=== PATIENT | female | born 1930 | race Caucasian/White ===

== ENCOUNTER → 2017-02-09 | Outpatient (CLI) | payer OTHER ==
[~2017-02-09] MED LIST: ALBUTEROL17 GM INH; ALL DAY ALLERGY10 M3 PO; AMLODIPINE BESYL5 MG PO; AZITHROMYCIN250 MG PO; CYANOCOBAL1000 MCG/M INJ; DULERA 200 MCG/13 GM INH; FERROUS GLUCON PO; HYDROCHLOROTH12.5 M1 PO; LEVO-T88 MCG PO; LIPITOR20 MG PO; OMEPRAZOLE40 M1 PO; PREDNISONE10 MG PO; XOPENEX HFA15 GM INH; ZESTRIL5 MG PO; ZYLOPRIM100 MG PO
--- NOTE | ~2017-02-09 | CR63 ---
[facility] A Service of [facility] & [facility] RADIOLOGY TEXT RESULTS PATIENT: MARIELA DO LOCATION: [facility] : [birth year] UNIT #: [id number] AGE: [address]: MELLISSA SOTO APRN SEX: F ORDER DR: [id number] [facility] [address] [place], [place] [address] [id number] O MR#: [id number] Acc #: [id number] NAME: MARIELA DO : 1930 SEX: F STUDY DATE/TIME: 02/09/2017 15:21 UNIT: [facility] ROOM: STUDY DESCRIPTION: CR Chest 2 View Attending Physician: Monica Soto M.D. Referring Physician: Monica Soto M.D. Ordering Physician: Monica Soto M.D. Primary Care Physician: Monica Soto M.D. MEDICAL IMAGING REPORT This report is preliminary unless electronic signature is present EXAM PA and lateral chest, 02/09/2017 COMPARISON None HISTORY Shortness of breath for months. FINDINGS PA and lateral views obtained. The heart size is normal. Lungs are hyperinflated but clear. There is atherosclerotic disease in the aorta. CONCLUSION Hyperinflation consistent with chronic emphysematous lung disease. No acute process identified. Dictated by... Lukasz Edwards M.D. THIS IS AN ELECTRONICALLY VERIFIED REPORT Lukasz Edwards M.D. at 02/10/2017 7:26 AM [place] TD: 02/09/2017 15:40 JOB #: [id number] MEDICAL IMAGING REPORT Page 1 of 1 COPY
== END | disposition home or self-care (01) ==
LOC: CRAD 14:35
DX: R06.02 Shortness of breath (principal); R91.8 Other nonspecific abnormal finding of lung field
CPT/HCPCS: 71020

== ENCOUNTER 2017-02-10 18:56 | Inpatient (IN) | payer OTHER ==
--- NOTE | ~2017-02-10 | US84 ---
[id number] [facility] [address] [place], [place] [address] [id number] I MR#: [id number] Acc #: [id number] NAME: MARIELA BESS : 1930 SEX: F STUDY DATE/TIME: 02/11/2017 8:56 UNIT: [id number] PCU ROOM: 302 STUDY DESCRIPTION: US LE Veins Complete Roshan Stdy Attending Physician: Lenore Alaniz M.D. Ordering Physician: Anuja Gonzales M.D. Primary Care Physician: Monica Ledezma M.D. MEDICAL IMAGING REPORT This report is preliminary unless electronic signature is present EXAM Bilateral lower extremity Doppler venous ultrasound, 02/11/2017. HISTORY Bilateral lower extremity pain, greatest in the knees and ankles for 2 years. COMPARISON None. TECHNIQUE Venous ultrasound examination of both lower extremities was performed using grayscale, spectral Doppler and color flow Doppler imaging. FINDINGS The examination is negative. There is no evidence of deep venous thrombus from the groin to the lower calf bilaterally. Visualized greater saphenous veins are also patent. IMPRESSION Negative examination. No evidence of lower extremity deep venous thrombosis. Dictated by... Donya Zapien M.D. THIS IS AN ELECTRONICALLY VERIFIED REPORT Donya Zapien M.D. at 02/14/2017 8:31 AM Tu TD: 02/11/2017 11:35 JOB #: [id number] MEDICAL IMAGING REPORT Page 1 of 1 COPY
--- NOTE | ~2017-02-10 | CR72 ---
[facility]. [facility] A Service of [facility] & [facility] RADIOLOGY TEXT RESULTS PATIENT: MARIELA BESS LOCATION: [facility] : [birth year] UNIT #: [id number] AGE: [address]: Anuja Gonzales MD SEX: F ORDER DR: [id number] [facility] [address] [place], [place] [address] [id number] E MR#: [id number] Acc #: [id number] NAME: MARIELA BESS. : 1930 SEX: F STUDY DATE/TIME: 02/10/2017 19:54 UNIT: [facility] ROOM: STUDY DESCRIPTION: CR Chest Single View Portable Attending Physician: Kulwant Doyle M.D. Ordering Physician: Kulwant Doyle M.D. Primary Care Physician: Monica Ledezma M.D. MEDICAL IMAGING REPORT This report is preliminary unless electronic signature is present EXAM Portable chest. HISTORY Chest pain, cough, congestion, onset today. COMPARISON 02/09/2017 FINDINGS Portable view of the chest demonstrates pulmonary hyperinflation, hyperlucency compatible with underlying emphysema and mild fibrosis. No acute airspace disease or consolidation. No effusions. Heart, mediastinum unremarkable. No pneumothorax. Dictated by... Yoly Haas M.D. THIS IS AN ELECTRONICALLY VERIFIED REPORT Yoly Haas M.D. at 02/10/2017 10:34 PM Juan TD: 02/10/2017 21:28 JOB #: [id number] MEDICAL IMAGING REPORT Page 1 of 1 COPY
--- NOTE | ~2017-02-10 | EKG ---
PATIENT: CHARLES BLISSMARIELA UNIT #: [id number] Ventricular Rate: 127 BPM Atrial Rate: 127 BPM P-R Interval: 144 ms QRS Duration: 74 ms Q-T Interval: 304 ms QTC Calculation(Bezet): 441 ms P [place]: 72 degrees Calculated R [place]: 52 degrees Calculated T [place]: 69 degrees Diagnosis Line: Sinus tachycardia with Fusion complexes Diagnosis Line: Possible Left atrial enlargement Diagnosis Line: Borderline ECG Diagnosis Line: Diagnosis Line: Confirmed by KAIT NEVAREZ MD ([id number]) on Diagnosis Line: 02/11/2017 8:54:36 AM INTERPRETING MD: GERI HARMON
--- NOTE | ~2017-02-10 | DS ---
Unit #: [id number] #: [id number] Patient: MARIELA BESS [id number] [address] [place], [place] [address] [id number] I MR#: [id number] NAME: MARIELA BESS. ROOM: [facility] Age: 86 Sex: F Admission Date: 02/10/2017 : 1930 Discharge Date: 02/13/2017 Attending Physician: Lenore Alaniz M.D. Primary Care Physician: Monica Ledezma M.D. DISCHARGE SUMMARY PRINCIPAL DIAGNOSES 1. Acute asthma exacerbation. 2. Acute bronchitis. 3. Acute kidney injury, prerenal, on chronic kidney disease stage 3, his baseline creatinine of approximately 1.2. 4. Iron deficiency anemia. 5. Severe vitamin B12 deficiency with vitamin B12 level of 175. 6. Hypertension. 7. Tachycardia, physiologic. 8. Gastroesophageal reflux disease. 9. Seasonal allergies. 10. Hyperlipidemia. 11. Gout. 12. Hypothyroidism. 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 PROCEDURES 1. Lower extremity venous Doppler on February 11, 2017, which was negative. 2. Chest x-ray on February 10, 2017, with pulmonary hyperinflation consistent with emphysema and fibrosis. No evidence of infiltrate. CLINICAL HISTORY/HOSPITAL COURSE Ms. Moreland is a very nice 86-year-old Korean speaking female who presents to the emergency department with shortness of breath, failing outpatient treatment. Please refer to H and P for further details. Chest x-ray in the emergency department was unremarkable. The patient was found to have significant wheezing and was subsequently admitted. The patient was placed on IV steroids in addition to nebulizer treatments and empiric azithromycin. Dr. Ramirez was consulted. Fortunately, patient did not have any hypoxia during hospitalization but continued to have significant wheezing for several days. However, this is now significantly improved and she will be transitioned to oral steroids and be discharged home. I will note I did provide her a new nebulizer upon discharge. The patient did have some complaints about underlying muscle cramping, particularly at home. She was found to be deficient in vitamin B12 and iron, both of which had been replaced during hospitalization and she will continue replacement as an outpatient. The patient's other chronic conditions remain stable. I will note she has been off of her lisinopril and hydrochlorothiazide during hospitalization. Unit #: [id number] #: [id number] Patient: MARIELA BESS Systolic blood pressure is running in the 100s to 110s. I am going to discontinue these medications upon discharge and blood pressure can be followed closely. DISCHARGE CONDITION Stable. DISCHARGE STATUS Discharge to home. DISCHARGE MEDICATIONS 1. Ventolin inhaler, one to two puffs every four hours p.r.n. for shortness of breath. 2. Prednisone tablets, four tablets for three days, three tablets for three days, two tablets for three days, one tablet for three days and discontinue. 3. Zyrtec 10 mg daily. 4. Dulera 200/5 mcg, two puffs b.i.d. 5. Norvasc 5 mg daily. 6. Lipitor 20 mg at bedtime. 7. Ferrous sulfate 324 mg p.o. daily. 8. Azithromycin 250 mg p.o. daily for another three days. 9. Allopurinol 100 mg daily. 10. Omeprazole 40 mg daily. 11. Xopenex nebulizer solution, one every six hours p.r.n. for shortness of breath. 12. Levothyroxine 88 mcg p.o. daily. 13. Vitamin B12 1000 mcg subcutaneously every 24 hours x10 days. DISCHARGE INSTRUCTIONS Patient was instructed to follow a regular diet. She can increase her activities as tolerated. FOLLOWUP The patient will follow up with her primary care provider in approximately two weeks. She will follow up with her primary correctional sergeant, Dr. Sosa, in two weeks as well. The patient will receive home health upon discharge for assistance with vitamin B12 injections and following ten days I would suggest at least a once monthly vitamin B12 injection to maintain level. Time spent on discharge - 57 minutes. Dictated by... Lenore Alaniz M.D. ISAAC/mandeep TD: 02/14/2017 08:53 JOB #: [id number] Unit #: [id number] #: [id number] Patient: MARIELA BESS DISCHARGE SUMMARY Page 1 of 1 X Lenore Alaniz MD X DISCHARGE SUMMARY
--- NOTE | ~2017-02-10 | CO ---
Unit #: [id number] #: [id number] Patient: MARIELA BESS [id number] [address] [place], [place] [address] [id number] I MR#: [id number] NAME: MARIELA BESS. ROOM: 302 Age: 86 Sex: F Admission Date: 02/10/2017 : 1930 Attending Physician: Lenore Alaniz M.D. Primary Care Physician: Franci Ledezma CONSULTATION REPORT REASON FOR CONSULTATION Asthma. HISTORY OF PRESENT ILLNESS Ms. Moreland is an 86-year-old female, who has asthma, followed by Dr. Sosa in our office. She apparently had several days of increasing cough with mucopurulent sputum. She was placed on Zithromax and prednisone the day prior to admission, but she had increasing shortness of breath. In the emergency room, she was somewhat tachycardiac. She received treatment and was admitted. Translation was done per translation software in a phone per family. She is feeling better, but she still is somewhat weak. No chest pain, coughing up blood, or fever. PAST MEDICAL HISTORY Remarkable for gout, hypothyroidism, asthma, hypertension, hyperlipidemia, gastroesophageal reflux. ALLERGIES Iodine. HOME MEDICATIONS Include Dulera b.i.d. She has a Ventolin inhaler, Prilosec, Norvasc, Synthroid, hydrochlorothiazide, allopurinol, lisinopril, Lipitor, Zyrtec. SOCIAL HISTORY She is from [place]. She does not speak Palestinian. She is a never smoker. FAMILY HISTORY Asthma. REVIEW OF SYSTEMS Negative other than above. PHYSICAL EXAMINATION GENERAL: Reveals the patient, who is in no acute distress on room air. VITAL SIGNS: She is afebrile, pulse 77, respiratory rate 16, blood pressure is 113/41. She is 5 feet 4 inches, 134 pounds. HEENT: Pupils are equal, round, and reactive to light. Sclerae anicteric. Head; atraumatic. NECK: Supple. No supraclavicular or cervical adenopathy appreciated. CHEST: Mild wheeze. Mild prolongation of expiratory phase. No consolidation or stridor. Unit #: [id number] #: [id number] Patient: MARIELA BESS CARDIAC: Reveals distant heart tones. Regular rate and rhythm. No pathologic murmur, rub, or gallop. ABDOMEN: Soft and nontender. No hepatomegaly or rebound. EXTREMITIES: Reveal no clubbing, cyanosis, or edema. No calf tenderness. SKIN: Warm and dry without rash or diaphoresis. NEUROLOGIC: Grossly intact. No focal motor or sensory deficits noted. DIAGNOSTIC STUDIES LABORATORY RESULTS: BUN 21, creatinine is 1.0. Cardiac enzymes negative. CBC; white blood cell count 11.4, hemoglobin 11.4, platelet count normal. IMAGING STUDIES: Chest x-ray; no acute disease. CARDIOVASCULAR STUDIES: Rhythm strips are sinus. IMPRESSION 1. Asthma with exacerbation. 2. Acute bronchitis. 3. Multiple medical problems as listed above. PLAN Agree with steroids, nebulized bronchodilators, antibiotics. Continue Dulera and as needed albuterol at home, consider nebulized bronchodilators at home as well. I anticipate fairly rapid improvement and she may be able to be discharged in a day or two. Thank you very much for allowing me to participate in the care of Ms. Moreland. Dictated by... Cameron Ramirez M.D. JULIANNE/ross TD: 02/12/2017 21:22 JOB #: [id number] CONSULTATION REPORT Page 1 of 1 X Cameron Ramirez MD CONSULTATION REPORT
--- NOTE | ~2017-02-10 | HP ---
Unit #: [id number] #: [id number] Patient: MARIELA BESS [id number] [address] [place], [place] [address] [id number] I MR#: [id number] NAME: MARIELA BESS. ROOM: 29356 Age: 86 Sex: F Admission Date: 02/10/2017 : 1930 Attending Physician: Anuja Gonzales M.D. Primary Care Physician: Mnoica Ledezma M.D. HISTORY AND PHYSICAL CHIEF COMPLAINT Shortness of breath. HISTORY OF PRESENT ILLNESS This very pleasant 86-year-old female, with asthma followed by Dr. Wilfrid Sosa, with history of gout, hypothyroidism, hypertension, is admitted for asthma exacerbation. The patient has been experiencing a recent cough productive of yellow and clear sputum. She was seen by her primary care physician and started Zithromax, Phenergan DM and prednisone yesterday. However, she developed increasing shortness of breath with chest discomfort today, worse with cough, and wheezing. She presented to this emergency department tonight where she was tachycardic as high as 138. Chest x-ray showed COPD and mild fibrosis, patient does have wheezing on exam, her initial O2 saturation was 95%. In the ER, she was bolused with a liter of saline, given 125 mg of Solu-Medrol, DuoNeb, aspirin, Rocephin and Zithromax. A call was also made to her feeder loader who asked that Medicine admit and his group would see in the morning. At this time, the patient is feeling much more comfortable. PAST MEDICAL HISTORY 1. Gout. 2. Hypothyroidism. 3. Asthma. 4. Hypertension. 5. Hyperlipidemia. 6. GERD. 7. Cholecystectomy. 8. . ALLERGIES Iodine. HOME MEDICATIONS 1. Ventolin inhaler. 2. Z-pack started yesterday. 3. Dulera 200/5 two puffs b.i.d. 4. Phenergan DM and prednisone started yesterday. 5. Synthroid 0.088 mg daily. 6. Norvasc 5 mg daily. 7. Prilosec 20 mg daily. 8. Hydrochlorothiazide 12.5 mg daily. 9. Allopurinol 100 mg daily. Unit #: [id number] #: [id number] Patient: MARIELA BESS 10. Lisinopril 5 mg daily. 11. Lipitor 20 mg daily. 12. Zyrtec 10 mg daily. SOCIAL HISTORY The patient is originally from [place], living with her daughter. She is a lifelong nonsmoker and does not drink alcohol. FAMILY HISTORY Noncontributory given patient's age. REVIEW OF SYSTEMS Not performed due to language barrier. PHYSICAL EXAMINATION VITAL SIGNS: Temperature 98.3, pulse initially 138 now down to 118, respirations 16, blood pressure 115/76, O2 saturation 95% on room air. GENERAL: Very pleasant, young-appearing 86-year-old female currently in no acute distress. HEENT: Eyes PERRLA. Extraocular muscles are intact. Pharynx is benign. NECK: Supple without adenopathy or thyromegaly. CHEST: Expiratory wheezes bilaterally. HEART: Tachy S1, S2 without murmur. ABDOMEN: Bowel sounds are present. No hepatosplenomegaly, tenderness or masses. EXTREMITIES: Without clubbing, cyanosis, or edema. Pedal pulses are present. No ulcers on the feet. NEUROLOGIC: Awake, alert, oriented. Cranial nerves are intact. Equal strength throughout. DIAGNOSTIC STUDIES LABORATORY: Hematocrit 40.2, white blood cell count 11.8, normal platelet count. Cardiac markers are negative. D-dimer is mildly elevated at 529 but based on age this would be within normal limits. SMA-7 glucose 133, BUN 29, creatinine 1.7 without previous values for comparison. Initial lactic acid is 2.6 and will be repeated but patient is not septic. IMAGING: Chest x-ray COPD and mild fibrosis. CARDIOVASCULAR: EKG shows a sinus tachycardia rate 127. Cardiac markers are negative. ASSESSMENT 1. Asthma exacerbation secondary to bronchitis. 2. Sinus tachycardia, likely reactive, now improved. 3. Kidney disease which could be acute versus chronic. No old records. 4. Hypothyroidism. 5. Hypertension. 6. Hyperlipidemia. 7. Gout. 8. Elevated lactic acid, but patient is not septic. 9. Gastroesophageal reflux disease. PLAN 1. IV fluids, supportive treatment. 2. Steroids, mucolytics and Zithromax. 3. DVT prophylaxis. 4. Patient's feeder loader has been consulted and will be seeing in the Unit #: [id number] #: [id number] Patient: MARIELA BESS morning. 5. Hold hydrochlorothiazide and lisinopril pending repeat labs in the morning and will obtain old records. 6. Of note, patient is a Catholic and declines blood products. Dictated by Anuja Gonzales M.D. AML/cs TD: 02/10/2017 22:54 JOB #: [id number] CC: Raman Meyers M.D. HISTORY AND PHYSICAL Page 1 of 1 X Anuja Gonzales MD X HISTORY AND PHYSICAL
[2017-02-10 19:51] LABS: BASOPHIL% 0.1 % (0-2.5); HEMATOCRIT 40.2 % (35.0-45.0); HEMOGLOBIN 12.8 gm/dL (12.0-16.0); LYMPHOCYTE# 1.1 X10e3 (1.0-3.5); MEAN CELL VOLUME 94.5 FL (83-96); MEAN CORPUSCULAR HEMOGLOBIN 30.1 PG (28-34); MEAN CORPUSCULAR HGB CONC 31.8 g/dL (30-36); MEAN PLATELET VOLUME 8.7 FL (6.5-11.5); MONOCYTE# 0.3 X10e3 (0-1.0); MONOCYTE% 2.5 % (3.0-12.0); NEUTROPHIL# 10.4 X10e3 (1.5-7.1); NEUTROPHIL% 88.4 % (40-75); PLATELET COUNT 236 X10e3 (140-420); RED BLOOD COUNT 4.25 X10e (3.90-5.30); RED CELL DISTRIBUTION WIDTH 15.8 % (11.0-15.5); WHITE BLOOD COUNT 11.8 X10e3 (4.0-10.5)
[2017-02-10 19:54] LABS: DIFF IND NO
[2017-02-10 20:05] LABS: POC - TROPONIN <0.05 ng/mL (<=0.05)
[2017-02-10 20:14] LABS: BUN/CREATININE RATIO 15.29; CALCIUM SERUM 10.1 mg/dL (8.4-10.2); CREATININE SERUM 1.7 mg/dL (0.6-1.4); GLOM FILT RATE Estimated 26.7 mL/min (>60); POTASSIUM 4.8 mmol/L (3.5-5.1)
[2017-02-10] MEDS ORDERED: ALL DAY ALLERGY10 M3 PO (20:58)
[2017-02-10] MEDS ORDERED: HYDROCHLOROTH12.5 M1 PO (21:00)
[2017-02-10] MEDS ORDERED: ZESTRIL5 MG PO (21:00)
[2017-02-10] MEDS ORDERED: ALBUTEROL17 GM INH (21:01)
[2017-02-10] MEDS ORDERED: AMLODIPINE BESYL5 MG PO (21:02)
[2017-02-10] MEDS ORDERED: ZYLOPRIM100 MG PO (21:02)
[2017-02-10] MEDS ORDERED: LEVO-T88 MCG PO (21:03)
[2017-02-10] MEDS ORDERED: LIPITOR20 MG PO (21:03)
[2017-02-10] MEDS ORDERED: XOPENEX HFA15 GM INH (21:04)
[2017-02-10] MEDS ORDERED: DULERA 200 MCG/13 GM INH (21:04)
[2017-02-10 21:53] LABS: POC - CKMB 3.7 ng/mL (0.0-7.9); POC - TROPONIN <0.05 ng/mL (<=0.05)
[2017-02-11] MEDS ORDERED: OMEPRAZOLE40 M1 PO (00:53)
[2017-02-11 05:45] LABS: HEMATOCRIT 36.5 % (35.0-45.0); HEMOGLOBIN 11.4 gm/dL (12.0-16.0); MEAN CELL VOLUME 95.3 FL (83-96); MEAN CORPUSCULAR HEMOGLOBIN 29.7 PG (28-34); MEAN CORPUSCULAR HGB CONC 31.2 g/dL (30-36); MEAN PLATELET VOLUME 8.6 FL (6.5-11.5); RED BLOOD COUNT 3.83 X10e (3.90-5.30); RED CELL DISTRIBUTION WIDTH 15.4 % (11.0-15.5); WHITE BLOOD COUNT 11.4 X10e3 (4.0-10.5)
[2017-02-11 06:55] LABS: ALBUMIN SERUM 3.5 g/dL (3.5-5.0); BILIRUBIN,TOTAL 0.2 mg/dL (0.2-2.0); CALCIUM SERUM 9.3 mg/dL (8.4-10.2); GLOM FILT RATE Estimated 50.6 mL/min (>60); POTASSIUM 4.9 mmol/L (3.5-5.1); PROTEIN TOTAL SERUM 6.5 g/dL (6.0-8.3)
[2017-02-11 07:32] LABS: %MB 2.8 % (0.0-4.0); MB 11.7 ng/ml
[2017-02-12 06:58] LABS: HEMATOCRIT 36.4 % (35.0-45.0); HEMOGLOBIN 11.3 gm/dL (12.0-16.0); MEAN CELL VOLUME 95.8 FL (83-96); MEAN CORPUSCULAR HEMOGLOBIN 29.8 PG (28-34); MEAN CORPUSCULAR HGB CONC 31.1 g/dL (30-36); RED BLOOD COUNT 3.8 X10e (3.90-5.30); RED CELL DISTRIBUTION WIDTH 15.4 % (11.0-15.5); WHITE BLOOD COUNT 17.4 X10e3 (4.0-10.5)
[2017-02-12 07:36] LABS: BUN/CREATININE RATIO 22.72; CALCIUM SERUM 8.9 mg/dL (8.4-10.2); CREATININE SERUM 1.1 mg/dL (0.6-1.4); GLOM FILT RATE Estimated 45.1 mL/min (>60); POTASSIUM 4.8 mmol/L (3.5-5.1)
[2017-02-12 07:40] LABS: MAGNESIUM 1.6 mg/dL (1.6-3.0)
[2017-02-12 13:49] LABS: FREE T3 2.2 pg/mL (2.5-3.9)
[2017-02-12 13:51] LABS: FREE THYROXIN (T4) 1.03 ng/dL (0.58-1.64)
[2017-02-13] MEDS ORDERED: FERROUS GLUCON PO (13:53)
[2017-02-13] MEDS ORDERED: AZITHROMYCIN250 MG PO (13:53)
[2017-02-13] MEDS ORDERED: PREDNISONE10 MG PO (13:55)
[2017-02-13] MEDS ORDERED: CYANOCOBAL1000 MCG/M INJ (13:57)
== END 2017-02-13 18:32 | disposition home or self-care (01) | DRG 682 ==
LOC: CED 18:56 → CEDOF 22:15 → CED 22:19 → CEDOF 23:40 → C3A PCU 23:40
PROVIDERS: Emergency Medicine; Internal Medicine
DX: N17.9 Acute kidney failure, unspecified (principal); J96.00 Acute respiratory failure, unspecified whether with hypoxia or hypercapnia; J45.901 Unspecified asthma with (acute) exacerbation; J44.9 Chronic obstructive pulmonary disease, unspecified; J20.9 Acute bronchitis, unspecified; K21.9 Gastro-esophageal reflux disease without esophagitis; I12.9 Hypertensive chronic kidney disease with stage 1 through stage 4 chronic kidney disease, or unspecified chronic kidney disease; N18.3 Chronic kidney disease, stage 3 (moderate); D53.9 Nutritional anemia, unspecified; E53.8 Deficiency of other specified B group vitamins; R00.0 Tachycardia, unspecified; E78.5 Hyperlipidemia, unspecified; M10.9 Gout, unspecified; E03.9 Hypothyroidism, unspecified
CPT/HCPCS: 36415; 71010; 80048; 80053; 82550; 82553; 82607; 83540; 83550; 83605; 83735; 83880; 84439; 84443; 84481; 84484; 85025; 85027; 85379; 87040; 93005; 93970; 94640; 94664; 94760; 96374; 99285; J0456; J0696; J1650; J1885; J2920; J2930; J3420